=== PATIENT | male | born 1995 | race Two or more races ===

== ENCOUNTER 2019-02-25 13:55 | Inpatient (IN) | payer MEDICAID ==
[~2019-02-25] VITALS: Ht 165.1 cm; Wt 74.4 kg
[2019-02-25] VITALS: BP 140/82
--- NOTE | 2019-02-25 13:59 | NUR ---
[id number] [facility], UNCONSIOUS W/ EMPTY MEDICATION BOTTLE RESPERIDONE AND VISTARIL. TO ER 11, CHANGED TO HOSP GOWN, PATIENT STATES "I DON'T FEEL LIKE MYSELF THAT'S WHY I OVERDOSED WITH RISPERIDONE". HOOKED TO MONITOR, AWAITING MD RANDALL.
[2019-02-25] MEDS ORDERED: QUET300T2 GT (14:09)
[2019-02-25] MEDS ORDERED: RISP0.2515 PO (14:09)
[2019-02-25] MEDS ORDERED: HYDR50TA61 PO (14:09)
[2019-02-25] MEDS ORDERED: NALOXONE HCL 0.4 MG/ML AMPUL ONE (14:10)
--- NOTE | 2019-02-25 14:24 | NUR ---
DR DAVENPORT AT BEDSIDE
--- NOTE | 2019-02-25 14:26 | NUR ---
CALLED POISON CONTROL SPOKE WITH LINO. ACTIVATED CHARCOAL WAIT FOR 6 HOURS LOOK FOR HYPOTENSION SEIZURE QT PROLONGATION BENZO FOR TACHY AND SEIZURE WATCH FOR LONG QRS... CONTINOUS MONITORING AND NEOROEPI IF NEEDED.
[2019-02-25] MEDS ORDERED: NALOXONE HCL 0.4 MG/ML AMPUL IV ONE (14:30)
[2019-02-25] MEDS ORDERED: IV NS 0.9% 1,000 ML BAG IV ONE ×2 (14:30→15:00)
[2019-02-25 14:50] LABS: BASOPHILS # (AUTO) 0.1 /CMM (0.0-0.2); BASOPHILS % (AUTO) 0.5 % (0.0-2.0); EOSINOPHILS % (AUTO) 0.3 % (0.0-6.0); HEMATOCRIT 46 % (39-51); HEMOGLOBIN 15.1 g/dL (13.5-17.5); LYMPHOCYTES # (AUTO) 2.5 /CMM (0.8-4.8); LYMPHOCYTES % (AUTO) 21.2 % (20.0-44.0); MEAN CORPUSCULAR HGB CONC 33 g/dl (31.0-36.0); MEAN CORPUSCULAR VOLUME 90 fL (80-96); MONOCYTES # (AUTO) 0.9 /CMM (0.1-1.30); MONOCYTES % (AUTO) 7.4 % (2.0-12.0); NEUTROPHILS # (AUTO) 8.5 /CMM (1.8-8.9); NEUTROPHILS % (AUTO) 70.6 % (43.0-81.0); PLATELET COUNT (AUTO) 289 /CMM (150-450); RED BLOOD CELL COUNT(AUTO) 5.11 MIL/uL (4.5-6.0)
[2019-02-25 15:01] LABS: CALCIUM, SERUM 8.9 mg/dL (8.5-10.1); CARBON DIOXIDE 26 mmol/L (21-32); CHLORIDE 98 mmol/L (98-107); GLUCOSE 122 mg/dL (74-106); SODIUM SERUM 136 mmol/L (136-145); UREA NITROGEN, BLOOD 15 mg/dL (7-18)
[2019-02-25 15:14] LABS: ACETAMINOPHEN < 10 ug/ml (10-30); ALANINE AMINOTRANSFERASE 26 U/L (12-78); ALBUMIN 3.7 g/dL (3.4-5.0); ALCOHOL, BLOOD < 3 mg/dL (0-0); ALKALINE PHOSPHATASE 111 U/L (46-116); ASPARTATE AMINOTRANSFERASE 17 U/L (15-37); BILIRUBIN,DIRECT 0.1 mg/dL (0.0-0.2); BILIRUBIN,TOTAL 0.5 mg/dL (0.2-1.0); SALICYLATE 2.4 mg/dL (2.8-20.0); TOTAL PROTEIN, SERUM 6.8 g/dL (6.4-8.2)
[2019-02-25] MEDS ORDERED: LORAZEPAM INJ 2 MG/ML VIAL IV ONE (15:30)
[2019-02-25] MEDS ORDERED: Magnesium 1GM/D5W 100ML PREMIX 200 ML IV ONE (15:32)
[2019-02-25] MEDS ORDERED: LORAZEPAM INJ 2 MG/ML VIAL ONE (15:33)
[2019-02-25 15:40] LABS: APPEARANCE,URINE Clear (CLEAR); BILIRUBIN,URINE Negative (NEGATIVE); BLOOD, URINE Negative Ery/uL (NEGATIVE); COLOR,URINE Yellow (YELLOW); KETONES,URINE Negative (NEGATIVE); LEUKOCYTE ESTERASE ,URINE Negative (NEGATIVE); NITRITE, URINE Negative (NEGATIVE); PH,URINE 7.5 (5.0-8.0); PROTEIN,URINE Trace mg/dl (NEGATIVE); UGLUCOSE Negative (NEGATIVE); UROBILINOGEN,URINE 0.2 EU/dL (0.2)
[2019-02-25] MEDS: Magnesium 1GM/D5W 100ML PREMIX 100 ML IV SCH ×2 (15:43→16:43)
[2019-02-25 15:51] LABS: BACTERIA,URINE Few /HPF (None Seen); MUCUS,URINE Few /LPF (None Seen); RBC,URINE NONE SEEN /HPF (0-2); SQUAMOUS EPITHELIAL CELL,UR Many /HPF (None Seen); WBC,URINE NONE SEEN /HPF (0-3)
--- NOTE | 2019-02-25 16:25 | NUR ---
CALLED FOR TELE BED AND TURNED IN MOVE SHEET TO ADMITTING
[2019-02-25] MEDS ORDERED: ACTIVATED CHARCOAL 25 GM/120 ML TUBE PO ONE (16:30)
[2019-02-25] MEDS ORDERED: ACTIVATED CHARCOAL 25 GM/120 ML TUBE ONE (16:37)
--- NOTE | 2019-02-25 17:16 | NUR ---
GOT BED 323-1
[2019-02-25] MEDS ORDERED: POTASSIUM CL. PREMIX PERIPHER. 50 ML ONE ×2 (17:17→18:17)
[2019-02-25] MEDS: POTASSIUM CL. PREMIX PERIPHER. 50 ML IV SCH ×2 (17:45→18:45)
--- NOTE | 2019-02-25 17:50 | NUR ---
Received report from ER/Jec.
--- NOTE | 2019-02-25 17:51 | NUR ---
REPORT GIVEN TO KARIN NI
--- NOTE | 2019-02-25 18:40 | NUR ---
MANAGER OF ENTERPRISE NOTES RECEIVED PATIENT FROM ER VIA GURNEY. PATIENT LETHARGIC. NOTED WAKING AND TRYING TO REMOVE TUBES. PATIENT ABLE TO ANSWER MINIMAL QUESTIONS. FAMILY AT BEDSIDE. PATIENT WITH PERIPHERAL IV ON RIGHT UPPER ARM, INTACT PATENT. PATIENT PLACE IN ROOM. SITTER AT BEDSIDE. PATIENT PLACED ON SOFT WRIST RESTRAINTS FOR SAFETY. WILL ENDORSE CARE TO PM SHIFT. DR. SOLANGE EDWARDS NOTIFIED OF PATIENTS ARRIVAL.
[2019-02-25 19:00] VITALS: BP 152/84
--- NOTE | 2019-02-25 19:00 | NUR ---
TELE/RN NEW ADMISSION NOTES RECEIVED PATIENT ON A GURNEY FROM ER, ALTERED MENTAL STATUS ACCOMPANIED BY 2 ER ATTENDANT FAMILY WAS AT BEDSIDE, FRENCH SPEAKING, ADMITING MD EDWARDS FOR TOXIC ENCEPHALOPATHY. PER FAMILY PATIENT TRIED TO KILL SELF BY DRUG OVERDOSE , POSITIVE OF CANNABIS, APPEAR WEAK BUT WITH STRONG REFLEXX, WITH ORDER FOR RESTRAINTS. PATIENT IS A 24 YO MALE , HAD NGT WITH CHARCOAL PROCEDURE AT ER, TELE MONITOR 126 LEFT FORE ARM GAUGE 20 PATENT, HAD MAGNESIUM AND POTASSIUM REPLACED AT ERM EKG DONE WITH PROLONGED QTC AT 598 OVER DOSE OF RISPERIDAL AND HYDROXINE, [facility] CONTROL WAS CONTACTED, PER POISON CONTROL LORI GANNON CALLED TO HAVE REPEAT EKG TO FOLLOW UP WITH MD , FAMILY AT BEDSIDE DISCUSSED CARE.WITH SITTER, AND MONITORING. BELONGINGS CHECK.
[2019-02-25] MEDS ORDERED: ACETAMINOPHEN 650 MG/SUPP.RECT RC PRN (19:30)
[2019-02-25] MEDS ORDERED: Z GUARD REMEDY 2 OZ OINT TP PRN (19:30)
[2019-02-25] MEDS ORDERED: ONDANSETRON HCL/PF 4 MG/2 ML VIAL IVP PRN (19:30)
[2019-02-25] MEDS: IV NS 0.9% 1,000 ML IV PRN (20:39)
[2019-02-25] MEDS: ENOXAPARIN SODIUM 40 MG/0.4 ML DISP.SYRIN SQ SCH (20:51)
[2019-02-25] MEDS: LORAZEPAM INJ 2 MG/ML VIAL IV PRN (20:55)
--- NOTE | 2019-02-25 22:13 | NUR ---
TELE/RN NOTES PER MD BEEBE TO HAVE EKG REPEAT ,TO CARRY OUT ORDER.
[2019-02-25 22:52] VITALS: BP 152/84
[2019-02-26] VITALS: BP 140/82
--- NOTE | 2019-02-26 00:04 | NUR ---
TELE/RN NOTES PATIENT EXHIBITING INABILITY TO RELAX, WITH STRONG BLE AND BUE, TRING TO REMOVE RESTRAINT AND WANTING TO GET OUT OF BED. FAMILY INVOLVE, SITTER AT BEDSIDE, PATIENT WITH ALERED MENTAL STATUS.
--- NOTE | 2019-02-26 01:46 | NUR ---
TELE/RN NOTES MD BEEBE ORDER FOR PSYCH EVAL, DR GOMEZ, FACE SHEET FAXED.
--- NOTE | 2019-02-26 02:24 | NUR ---
TELE/RN NOTES PATIENT NGT TUBE DISLODGE, MD BEEBE MADE AWARE AND NGT TUBE WAS USED FOR ACTIVATED CHARCOAL AT ER,
[2019-02-26 04:00] VITALS: BP 126/46
[2019-02-26] MEDS: LORAZEPAM INJ 2 MG/ML VIAL IV PRN ×4 (04:02→18:19)
[2019-02-26] MEDS: IV NS 0.9% 1,000 ML IV PRN ×2 (04:08→18:19)
--- NOTE | 2019-02-26 04:30 | NUR ---
tele/rn notes MD BEEBE WAS MADE AWARE ATIVAN 0.5ML NOT EFFECTIVE, PATIENT RESTLESS AND JUMPING OUT OF BED EVEN WITH RESTRAINT, WITH ORDER RECEIVED OF ONE TIME ATIVAN 1 MG IV NOW.
[2019-02-26 04:41] VITALS: BP 126/46
[2019-02-26] MEDS ORDERED: LORAZEPAM INJ 2 MG/ML VIAL IV ONE (05:00)
--- NOTE | 2019-02-26 05:36 | NUR ---
RT NOTE UNABLE TO PERFORM EKG. PT IS COMBATIVE. LAST CORREA.
--- NOTE | 2019-02-26 05:37 | NUR ---
TELE/RN NOTES PATIENT UNABLE TO SIT STILL EVEN WITH RESTRAINT, PATIENT COMBATIVE UNABLE TO HAVE IT DONE, RT JARRETT PICKENS BUT UNABLE TO DO.
--- NOTE | 2019-02-26 06:25 | NUR ---
323-1 PATIENT WITH ALTERED MENTAL STATUS, WITH ORDER FOR RESTRAINT, SITTER AND ON IV HYDRATION,, MONITORED FOR ANY CHANGES,KEPT COMFORTABLE. WILL MONITOR.
[2019-02-26 08:00] VITALS: BP 107/61
--- NOTE | 2019-02-26 08:03 | NUR ---
BUSINESS AND FINANCIAL COUNSEL OPENING NOTES RECEIVED PATIENT IN BED, AWAKE, ALTERED MENTAL STATUS. 1:1 SITTER PRESENT AT BEDSIDE. PATIENT ON ROOM AIR BREATHING EVENLY WITH NO SIGNS OF SOB OR DISTRESS AT THIS TIME. SOFT WRIST RESTRAINS PER MD ORDER IN PLACE, LUF SL GAUGE # 20 PRESENT, INTACT AND RUNNING NS @ 125 ML/HR. NO SIGNS OF INFILTRATION OR REDNESS AT THE SITE. PATIENT ON EXTERNAL CARDIAC MONITORING WITH A READING OF NORMAL SR IN THE 90S. SAFETY PRECAUTIONS IN PLACE: BED IN LOW POSITION AND LOCKED, RAILS UP X 2, CALL LIGHT WITHIN REACH. WILL CONTINUE TO MONITOR PATIENT.
--- NOTE | 2019-02-26 10:30 | NUR ---
RN MS NOTES PT SEEN BY DR. STATON, ORDERED PSYCH EVAL AND SWALLOW EVAL, PLAN OF CARE DISCUSSED WITH PT'S RELATIVES AT BEDSIDE, VERBALIZED UNDERSTANDING.
[2019-02-26 10:58] LABS: BASOPHILS # (AUTO) 0.1 /CMM (0.0-0.2); BASOPHILS % (AUTO) 0.5 % (0.0-2.0); EOSINOPHILS % (AUTO) 0.2 % (0.0-6.0); HEMATOCRIT 44 % (39-51); HEMOGLOBIN 14.8 g/dL (13.5-17.5); LYMPHOCYTES # (AUTO) 2.4 /CMM (0.8-4.8); LYMPHOCYTES % (AUTO) 18.7 % (20.0-44.0); MEAN CORPUSCULAR HGB CONC 33 g/dl (31.0-36.0); MEAN CORPUSCULAR VOLUME 90 fL (80-96); MONOCYTES # (AUTO) 0.9 /CMM (0.1-1.30); NEUTROPHILS # (AUTO) 9.6 /CMM (1.8-8.9); NEUTROPHILS % (AUTO) 73.6 % (43.0-81.0); PLATELET COUNT (AUTO) 289 /CMM (150-450); RED BLOOD CELL COUNT(AUTO) 4.93 MIL/uL (4.5-6.0)
[2019-02-26 11:20] LABS: ALBUMIN 3.7 g/dL (3.4-5.0); BILIRUBIN,TOTAL 0.6 mg/dL (0.2-1.0); CALCIUM, SERUM 8.5 mg/dL (8.5-10.1); CREATININE 0.8 mg/dL (0.6-1.3); PHOSPHORUS 3.3 mg/dL (2.5-4.9); POTASSIUM 3.8 mmol/L (3.5-5.1); TOTAL PROTEIN, SERUM 6.7 g/dL (6.4-8.2)
--- NOTE | 2019-02-26 11:53 | NUR ---
MS RN NOTES PATIENT GETTING AGITATED TRYING TO PULL OUT OF RESTRAINS AND RAISING VOICE. PATIENT WIGGLING IN BED, TURNING HANDS AND FEET. PRN ATIVAN GIVEN PER MD ORDER. WILL CONTINUE TO MONITOR PATIENT.
--- NOTE | 2019-02-26 14:09 | NUR ---
RN MS NOTES PT RESTLESS, UNABLE TO FOLLOW DIRECTIONS, ATIVAN GIVEN EARLIER, NOT EFFECTIVE, DR. STATON INFORMED, ORDERED TO INCREASE ATIVAN DOSE TO Q4 HRS, ADMINISTERED ORDERED, WILL CONTINUE TO MONITOR.
[2019-02-26] MEDS: DIVALPROEX SODIUM 125 MG CAP.SPRINK PO SCH (16:23)
--- NOTE | 2019-02-26 18:45 | NUR ---
MS RN CLOSING NOTES PATIENT RESTING IN BED A/O x1. PATIENT ON ROOM AIR, BREATHING EVEN AND UNLABORED WITH NO SIGNS OF DISTRESS. NO SOB PRESENT AT THIS TIME. THROUGHOUT THE DAY PATIENT HAD ALTERED MENTAL STATUS, WITH MOOD SWINGS AND NOT VERY COOPERATIVE. PATIENT WITH A 1:1 SITTER ALL DAY AND WITH SOFT WRIST RESTRAINS ON AND OFF. LUIS #20 SL INTACT AND PATENT WITH NO SIGNS OF INFILTRATION. PATIENT SEEN BY DR. HUI AND GIVEN NEW ORDER OF DEPAKOT. PATIENT ABLE TO EAT DINNER (50%) WITH NO SWALLOWING PROBLEMS NOTED. ALL NEEDS WERE ATTENTED TO. SAFETY PRECAUTIONS IN PLACE; BED IN LOW POSITION AND LOCKED, RAILS UP X 2, CALL LIGHT WITHING REACH. WILL ENDORSE TO BUDGET EXAMINER NURSE.
[2019-02-26 19:00] VITALS: BP 133/84
--- NOTE | 2019-02-26 19:00 | NUR ---
MS RN NOTE RECEIVED PT IN STABLE CONDITION, NOTED WITH SITTER. A/O X1, FAMILY AT BEDSIDE. NO SIGNS OF SOB OR DISTRESS, NO INDICATION OF PAIN OR N/V. MG. RESTRAINTS NOTED, PROTOCOL TO BE ENFORCED. IV IN LUIS #[address] ALL CURRENT NEEDS ATTENDED TO. BED LOW, LOCKED, UPPER RAILS UP, AND CALL LIGHT WITHIN REACH. WILL CONT. TO MONITOR.
[2019-02-26] MEDS: ENOXAPARIN SODIUM 40 MG/0.4 ML DISP.SYRIN SQ SCH (21:12)
--- NOTE | 2019-02-26 21:58 | NUR ---
Met with patient, aunt Sherry and cousins at bedside. Patient is currently altered, poor historian, most info we're obtained from family. He lives locally with his Aunt,Uncle and cousins in the second floor apartment. Prior to admission, he was alert, independent with adl's and was working. Has hx of schizophrenia and was followed by a psychiatrist from [facility]. Has good family support. Plan to return home once discharge. Addendum: 02/26/19 at 3999 by JANINA BEJARANO RN Amended: Links added.
--- NOTE | 2019-02-26 23:00 | NUR ---
MS RN NOTE PT REMAINS AGITATED, PULLED OUT IV, AND BROKE SOFT WRIST RESTRAINT. HEIDI NOTIFIED WITH NEW ORDER FOR HALDOL 2.5 MG IVP ONE TIME. ORDER CARRIED OUT.
[2019-02-26] MEDS ORDERED: HALOPERIDOL LACTATE INJ 5 MG/ML VIAL IM ONE (23:30)
--- NOTE | 2019-02-26 23:39 | NUR ---
MS RN NOTE ORDERED HALDOL GIVEN IM, VSS STABLE, WILL CONT. TO MONITOR.
--- NOTE | 2019-02-27 00:52 | NUR ---
MS RN NOTE PT REMAINS AGITATED, ASSESSED BY HEIDI, NEW ORDERS CARRIED OUT.
[2019-02-27] MEDS ORDERED: hydrOXYzine HCL SYRUP 10 MG/5 ML UDC PO PRN (01:00)
[2019-02-27] MEDS ORDERED: QUETIAPINE FUMARATE 100 MG TABLET PO SCH ×2 (01:00→22:00)
--- NOTE | 2019-02-27 01:04 | NUR ---
MS RN NOTE ONE TIME DOSE OF SEROQUEL 300 MG PO FROM HEIDI. NOTED AND CARRIED OUT.
--- NOTE | 2019-02-27 01:20 | NUR ---
MS RN NOTE RISPERDAL ORDER CLARIFIED. PT WAS TAKING 3 MG HOME MED. HEIDI MADE AWARE.
--- NOTE | 2019-02-27 02:35 | NUR ---
MS RN NOTE PT REASSESSED, NOTED TO BE ASLEEP, BREATHING EVEN AND UNLABORED. WILL CONT. TO MONITOR.
--- NOTE | 2019-02-27 06:10 | NUR ---
MS RN NOTE PT REMAINS IN STABLE CONDITION, NOTED WITH SITTER. A/O X1, RESTING IN BED. NO SIGNS OF SOB OR DISTRESS, NO INDICATION OF PAIN OR N/V. MG. RESTRAINTS NOTED, PROTOCOL TO BE ENFORCED. IV IN LUIS #[address] ALL CURRENT NEEDS ATTENDED TO. BED LOW, LOCKED, UPPER RAILS UP, AND CALL LIGHT WITHIN REACH. WILL CONT. TO MONITOR AND ENDORSE TO NEXT SHIFT FOR DOMENICO.
[2019-02-27 07:34] LABS: BASOPHILS % (AUTO) 0.2 % (0.0-2.0); HEMATOCRIT 26 % (39-51); HEMOGLOBIN 8.7 g/dL (13.5-17.5); LYMPHOCYTES # (AUTO) 1.6 /CMM (0.8-4.8); LYMPHOCYTES % (AUTO) 29.4 % (20.0-44.0); MEAN CORPUSCULAR HGB CONC 34 g/dl (31.0-36.0); MEAN CORPUSCULAR VOLUME 91 fL (80-96); MONOCYTES # (AUTO) 0.4 /CMM (0.1-1.30); MONOCYTES % (AUTO) 8.1 % (2.0-12.0); NEUTROPHILS # (AUTO) 3.2 /CMM (1.8-8.9); NEUTROPHILS % (AUTO) 60.3 % (43.0-81.0); PLATELET COUNT (AUTO) 157 /CMM (150-450); RED BLOOD CELL COUNT(AUTO) 2.83 MIL/uL (4.5-6.0); WHITE BLOOD COUNT (AUTO) 5.3 K/uL (4.3-11.0)
[2019-02-27] MEDS ORDERED: risperiDONE 0.25 MG TABLET PO SCH (09:00)
[2019-02-27] MEDS ORDERED: risperiDONE 1 MG TABLET PO SCH (09:00)
[2019-02-27 09:27] LABS: CALCIUM, SERUM 8.9 mg/dL (8.5-10.1); PHOSPHORUS 4.4 mg/dL (2.5-4.9); POTASSIUM 4.1 mmol/L (3.5-5.1)
[2019-02-27] MEDS: risperiDONE 1 MG TABLET PO SCH ×2 (09:52→16:26)
[2019-02-27] MEDS: DIVALPROEX SODIUM 125 MG CAP.SPRINK PO SCH ×3 (09:53→16:26)
--- NOTE | 2019-02-27 14:10 | NUR ---
MS RN NOTES-- NOTIFIED DR. STATON RE: RESULTS OF CK-MB AND CT HEAD W/ NO NEW ORDERS.
--- NOTE | 2019-02-27 18:24 | NUR ---
MS RN END OF SHIFT REPORT PT IS A/O 2, AFEBRILE. RESPIRATIONS ARE EVEN AND UNLABORED, NOT IN ANY ACUTE DISTRESS NOTED. PT DENIES ANY PAIN, NO C/O SOB, N/V. +BOWEL SOUNDS, +FLATUS. PT ABLE TO VOID. PT IS AMBULATORY WITH ASSISTANCE. SKIN KEPT CDI. SITTER AT BEDSIDE. SAFETY MEASURES ARE IN PLACE. ALL NEEDS MET AND RENDERED. CONTINUE W/ POC. WILL ENDORSE TO NEXT SHIFT FOR CONTINUITY OF CARE.
--- NOTE | 2019-02-27 19:30 | NUR ---
RN NOTES RECEIVED PT. AWAKE ON BED, A/OX3, CALM AND COOPERATIVE, SITTER AT BEDSIDE, NOT IN DISTRESS, NO PAIN NOTED, [id number], CONTINUE TO MONITOR
[2019-02-27 20:00] VITALS: BP 117/53
[2019-02-27] MEDS: ENOXAPARIN SODIUM 40 MG/0.4 ML DISP.SYRIN SQ SCH (21:54)
--- NOTE | 2019-02-28 06:32 | NUR ---
RN NOTES SLEEPING BUT AROUSABLE, MORNING CARE RENDERED, SITTER AT BEDSIDE, NOT IN DISTRESS, NO PAIN NOTED, PT. NEEDS ATTENDED
[2019-02-28 06:54] LABS: BASOPHILS % (AUTO) 0.5 % (0.0-2.0); EOSINOPHILS % (AUTO) 3.1 % (0.0-6.0); HEMATOCRIT 51 % (39-51); LYMPHOCYTES # (AUTO) 4.1 /CMM (0.8-4.8); LYMPHOCYTES % (AUTO) 43.8 % (20.0-44.0); MEAN CORPUSCULAR HGB CONC 33 g/dl (31.0-36.0); MEAN CORPUSCULAR VOLUME 91 fL (80-96); MONOCYTES # (AUTO) 0.9 /CMM (0.1-1.30); MONOCYTES % (AUTO) 9.2 % (2.0-12.0); NEUTROPHILS # (AUTO) 4.1 /CMM (1.8-8.9); NEUTROPHILS % (AUTO) 43.4 % (43.0-81.0); PLATELET COUNT (AUTO) 306 /CMM (150-450); RED BLOOD CELL COUNT(AUTO) 5.62 MIL/uL (4.5-6.0); WHITE BLOOD COUNT (AUTO) 9.4 K/uL (4.3-11.0)
[2019-02-28 07:04] LABS: HEMOGLOBIN 17.1 g/dL (13.5-17.5)
[2019-02-28 07:09] LABS: CALCIUM, SERUM 9.1 mg/dL (8.5-10.1); CREATININE 0.9 mg/dL (0.6-1.3); MAGNESIUM 1.9 mg/dL (1.8-2.4); PHOSPHORUS 4.9 mg/dL (2.5-4.9)
[2019-02-28 07:22] LABS: THYROID STIMULATING HORMONE 1.469 uIU/mL (0.358-3.74)
[2019-02-28 08:00] VITALS: BP 115/76
--- NOTE | 2019-02-28 08:15 | NUR ---
MS RN NOTES PATIENT RECEIVED RESTING INSIDE ROOM. AWAKE, A/O X 3. NO ACUTE DISTRESS. DENIES ANY PAIN OR DISCOMFORT. NO CHANGES IN LOC NOTED AT THIS TIME. DENIES SI/HI. SITTER AT BEDSIDE. PATIENT AMBULATORY WITH STEADY GAIT. WILL CONTINUE TO MONITOR. BED LOCKED AND IN LOW POSITION. BILATERAL UPPER SIDE RAILS UP AND LOCKED. CALL LIGHT WITHIN EASY REACH
[2019-02-28] MEDS: risperiDONE 1 MG TABLET PO SCH (09:03)
[2019-02-28] MEDS: DIVALPROEX SODIUM 125 MG CAP.SPRINK PO SCH ×2 (09:03→12:23)
--- NOTE | 2019-02-28 10:37 | NUR ---
MS RN NOTES PLACED CALL TO OLYA TURCIOS, AUNT ([phone]) AND EDWARD APPIAH, COUSIN ([phone]) TO VERIFY IF BELONGINGS WERE BROUGHT HOME SIGNED ON THE INVENTORY SHEET. NO ANSWER ON BOTH PHONE NUMBERS, LEFT MESSAGES ON BOTH VOICEMAILS. WILL CONTINUE TO MONITOR
--- NOTE | 2019-02-28 10:41 | NUR ---
MS RN NOTES PATIENT WITH ORDER FROM DR STATON FOR OK TO DISCHARGE HOME IF PATIENT CLEARED BY PSYCH. PATIENT AWARE AND VERBALIZED UNDERSTANDING. PLACED CALL TO GPS AND SPOKE WITH CHARGE NURSE, AWAITING DR HUI TO EVALUATE PATIENT. WILL CONTINUE TO MONITOR
--- NOTE | 2019-02-28 11:05 | NUR ---
MS RN NOTES PATIENT SEEN AND EXAMINED BY DR UHI. VERBALIZED PATIENT CLEARED TO BE DISCHARGE HOME. OK TO CONTINUE DEPAKOTE AND RISPERDAL CURRENTLY ORDERED. DR STATON MADE AWARE. WILL CONTINUE TO MONITOR
[2019-02-28] MEDS ORDERED: DIVA125C2 PO (13:33)
[2019-02-28] MEDS ORDERED: RISP0.2515 PO (13:33)
--- NOTE | 2019-02-28 14:36 | NUR ---
MS RN NOTES OLYA FERRERA, AUNT ([phone]) PRESENT AT UNIT, VERBALIZED THAT SHE TOOK PATIENT'S BELONGINGS HOME ON FRIDAY. PATIENT AWARE AND VERBALIZED UNDERSTANDING. WILL CONTINUE TO MONITOR
--- NOTE | 2019-02-28 15:21 | NUR ---
MS RN NOTES CYNDIESINTONY AT BEDSIDE. PATIENT FOR DISCHARGE HOME TODAY, DISCHARGE INSTRUCTIONS AND EDUCATION PROVIDED AND PATIENT VERBALIZED UNDERSTANDING. PLACED CALL TO [facility] [place] AND SPOKE WITH PHARMACIST, VERBALIZED THAT THEY HAVE RECEIVED PRESCRIPTIONS AND WILL BE READY WHEN PATIENT GETS THERE. PATIENT MADE AWARE AND VERBALIZED UNDERSTANDING. ALL BELONGINGS COMPLETE ON DISCAHRGE, NO REPORT OF MISSING INVENTORY. IV REMOVED WITH TIP INTACT, PRESSURE DRESSING PLACED ON SITE. PATIENT LEFT UNIT AMBULATORY. A/O X 4. NO ACUTE DISTRESS. DENIES ANY PAIN OR DISCOMFORT. NO NEW SKIN BREAKDOWN ON DISCHARGE. ACCOMPANIED BY NURSING STAFF TO PARKING LOT. LEFT HOSPITAL PREMISES VIA PRIVATE CAR WITH COUSIN TONY. CHARGE NURSE AND MD AWARE OF DISCHARGE.
== END 2019-02-28 15:25 | disposition home or self-care (01) | DRG 917 ==
LOC: EDBD 13:56 → ER 13:56 → TELE 17:46 → MED 02-26 08:58
PROVIDERS: ADMIT Hospitalist; ATTEND Student in an Organized Health Care Education/Training Program
DX: T43.591A Poisoning by other antipsychotics and neuroleptics, accidental (unintentional), initial encounter (principal); G92 Toxic encephalopathy; M62.82 Rhabdomyolysis; Y92.9 Unspecified place or not applicable; F20.9 Schizophrenia, unspecified; E87.6 Hypokalemia; Z79.899 Other long term (current) drug therapy; D72.829 Elevated white blood cell count, unspecified; F29 Unspecified psychosis not due to a substance or known physiological condition; I45.81 Long QT syndrome; F41.9 Anxiety disorder, unspecified; R00.0 Tachycardia, unspecified; Z78.1 Physical restraint status
CPT/HCPCS: 36415; 70450-TC; 71045-TC; 80048-TC; 80053-TC; 80061-TC; 80076-TC; 80305; 81000-TC; 82550-TC; 83735-TC; 84100-TC; 84443-TC; 85025-TC; 85730-TC; 87081-TC; 92611-TC; C1751; G0378; G0480; J1630; J1650; J2060; J2310; J3475; J3480; J7030